=== PATIENT | male | born 1970 | race Caucasian/White ===

== ENCOUNTER → 2016-08-10 | Day surgery (SDC) | payer MEDICAID ==
[2016-08-06 07:34] VITALS: BMI 19.5
[~2016-08-10] MED LIST: BUPIVACAINE 0.25% 30 ML VIAL INF ONE; CEFAZOLIN 1 GM VIAL IR ONE; DEXAMETHASONE 4 MG/ML VIAL IV PRN; DIAZEPAM 5 MG TAB PO PRN; FENTANYL 100 MCG/2 ML VIAL IV PRN; FENTANYL 100 MCG/2 ML VIAL ONE; HEPARIN 5000 UNITS/ML VIAL INSTILL ONE; HYDROCODONE 5 MG/ACETAMIN 325 MG TAB PO PRN; IOHEXOL (Omnipaque-300) 30 ml vial INSTILL ONE; KETOROLAC TROMETH 30 MG/ML VIAL IV PRN; LABETALOL 20 MG/4 ML SYRINGE IV PRN; LIDOCAINE 1% 30 ML VIAL (PRESERVATIVE FREE) INF ONE; LR 1,000 ML IV ONE; LR 1,000 ML IV SCH; MIDAZOLAM 2 MG/2 ML VIAL ONE; NS 1,000 ML IV SCH; NS 250 ML IV SCH; ONDANSETRON HCL 4 MG/2 ML VIAL IV PRN; PROPOFOL 200 MG/20 ML VIAL IV ONE; SCOPOLAMINE TRANSDERMAL PATCH TOP PRN; hydrALAZINE 20 MG/ML VIAL IV PRN
--- NOTE | 2016-08-10 07:02 | SC.ANESEVA ---
Anesthesia Eval & Plan ([facility]) - Providers Stated Procedure: port placement Surgeon:: Boone Powers - Medications/Allergies Allergies: Allergies No Known Allergies Allergy (Verified 06/02/16 03:26) Home Medications: Home Medication List Alprazolam [Xanax] 0.25 mg PO PRN 08/06/16 [History] Cyclobenzaprine HCl [Flexeril] 10 mg PO PRN 08/06/16 [History] Gabapentin [Neurontin] 300 mg PO TID 08/06/16 [History] Hydroxyzine HCl 50 mg PO TID 08/06/16 [History] Isosorbide Mononitrate 20 mg PO DAILY 08/06/16 [History] Sertraline HCl [Zoloft] 50 mg PO DAILY 08/06/16 [History] Tramadol HCl [Ultram] 50 mg PO PRN 08/06/16 [History] Trazodone HCl 50 mg PO QHS 08/06/16 [History] Current Medication List: Reviewed - Focused Physical Exam Mallampati: Class II Thyromental Distance: Greater than 3 Neck: Full Range of Motion Dental: Removable Dental Work Cardiovascular/Chest: Normal Respiratory: Lungs clear Other: Diagnoses UNSPECIFIED DISORDER OF CIRCULATORY SYSTEM (08/10/16) Allergies Allergy/AdvReac Type Severity Reaction Status Date / Time No Known Allergies Allergy Verified 06/02/16 03:26 Home Medications Medication Instructions Recorded Last Taken Type Oxycodone HCl [Roxicodone] 5 mg PO Q4 PRN #15 tablet 06/02/16 Unknown Rx Alprazolam [Xanax] 0.25 mg PO PRN 08/06/16 Unknown History Cyclobenzaprine HCl [Flexeril] 10 mg PO PRN 08/06/16 Unknown History Gabapentin [Neurontin] 300 mg PO TID 08/06/16 Unknown History Hydroxyzine HCl 50 mg PO TID 08/06/16 Unknown History Isosorbide Mononitrate 20 mg PO DAILY 08/06/16 Unknown History Sertraline HCl [Zoloft] 50 mg PO DAILY 08/06/16 Unknown History Tramadol HCl [Ultram] 50 mg PO PRN 08/06/16 Unknown History Trazodone HCl 50 mg PO QHS 08/06/16 Unknown History Height and Weight Patient's height 5 ft 8 in Patient's weight 64.41 kg Weight (Calculated Kilograms) 58.513 BMI 21.6 - Anesthetic Plan Anesthesia Type: MAC ASA Class: 3 - Focused Review of Systems Cardiac History: Yes: Hx Hypertension, Hx Heart Attack, Hx Cardiac Disorders HEENT: No: Other HEENT Problems Gastrointestinal: No: Hx Gastrointestinal Disorders Neurological/Musculoskeletal: Yes: Hx Seizures (EPILEPSY), Hx Neurological Disorders Smoking Status: Heavy tobacco smoker (5 or more cigarettes/day or daily pipe/ cigar) Last used tobacco: 1 MONTH AGO Last used Alcohol: RARE Surgical History: Yes: T&A
[2016-08-10 07:29] VITALS: TEMP 97.6
--- NOTE | 2016-08-10 08:33 | HIMOPRPT ---
POSTOPERATIVE DIAGNOSIS: DATE OF PROCEDURE: 08/10/16 PREOPERATIVE DIAGNOSIS: Poor venous access. POSTOPERATIVE DIAGNOSIS: Poor venous access. PROCEDURE: Placement of Left internal jugular catheter with subcutaneous port using ultrasound guidance and fluoroscopy. SURGEON: Boone Powers MD. ANESTHESIA: MAC. COMPLICATIONS: None. PROCEDURE NOTE: The patient was placed supine on the operative table. Patient was prepped and draped in usual fashion. Using ultrasound guidance, we were able to identify the left internal jugular vein. We anesthetized the skin and subcutaneous tissue. We placed a large-bore needle directly into the vein under ultrasound guidance. We then passed a guidewire through the needle and we removed the needle. Using the C-arm fluoroscopy, we were able to identify the trajectory of the guidewire. With this in good position, we went ahead and infiltrated the subcutaneous tissue in the left subclavicular region. An incision was made, and we created a subcutaneous pocket to accommodate the port. We then anesthetized the skin subcutaneous tissue between the puncture site and the port site. We then made a small incision at the puncture site with a 15 blade, and then placed a tunneler between these 2, pulling the catheter through. Under fluoroscopic visualization, we were able to see and placed a dilator sheath over the guidewire without any difficulties. We removed the guidewire and the dilator leaving the sheath in place. We then passed the catheter through the sheath. We peeled the sheath away leaving the catheter in place. We then clamped the other end of the catheter and then filled the catheter with contrast. This allowed for easy visualization. We then placed traction on this until the tip was at the superior vena cava. We went ahead and then injected contrast through this and were able to visualize the tip was indeed in the superior vena cava under fluoroscopic visualization. We then cut the catheter, assembled it to the port, placed the port in the subcutaneous pocket. We sutured this to the fascia using Vicryl sutures. We irrigated this, tested the port, we easily aspirated this and then flushed with heparinized saline, repeating this process several times. We checked the position of the catheter and port using fluoroscopy, they were in excellent position. We then irrigated the wounds, closed them with Vicryl sutures and Monocryl. Placed Dermabond over the skin edges. The patient tolerated this well. Sponge and needle counts were correct.
--- NOTE | 2016-08-10 08:35 | HIMOPRPT ---
PROCEDURE: DATE OF PROCEDURE: 08/10/16 PREOPERATIVE DIAGNOSIS: Poor venous access, and port placement. POSTOPERATIVE DIAGNOSIS: Poor venous access, and port placement. PROCEDURE: Contrast study through catheter port. SURGEON: Boone Powers MD. ANESTHESIA: General. COMPLICATIONS: None. PROCEDURE IN DETAIL: During placement of left internal jugular vein catheter, Isovue was injected through the catheter. On usage of fluoroscopy, the catheter tip was well visualized. This was noted to be in the superior vena cava. No complicating features of placement noted. IMPRESSION: Intravenous catheter with tip in superior vena cava.
--- NOTE | 2016-08-10 08:38 | PCM.DCS92 ---
Discharge Outpatient Note Additional Instructions: Instructions: 08/10/16 * Anesthetics and other medications stay in your system 24 hours, so you may feel drowsy. These effects will wear off. * DO NOT drive a car, operate machinery or power tools, or drink alcoholic beverages for 24 hours following surgery. * DO NOT make any important decisions, such as signing legal documents for 24hours following surgery. * Please take pain medications as directed. * Apply ice packs to the procedure site for 20 minutes on, 1 hour off and repeat as needed. * Return to your regular diet as tolerated. * Follow up with Oncology as sched. Call Physician office to report any of the following: * Elevated temperature * Increased drainage or drainage has foul odor * Increased pain not controlled by regular use of pain medication
[2016-08-10 09:03] VITALS: BP 129/79; PULSE 93
== END ==
LOC: CPSC 06:40
PROVIDERS: ATTEND Surgery
PROC: 02HV33Z Insertion of Infusion Device into Superior Vena Cava, Percutaneous Approach (ICD-10-PCS; principal; 2016-08-10 07:15)
DX: C34.90 Malignant neoplasm of unspecified part of unspecified bronchus or lung (principal); I99.9 Unspecified disorder of circulatory system; I10 Essential (primary) hypertension; I25.2 Old myocardial infarction; G40.909 Epilepsy, unspecified, not intractable, without status epilepticus; F17.210 Nicotine dependence, cigarettes, uncomplicated; Z79.899 Other long term (current) drug therapy
CPT/HCPCS: 36561; 76937; 77001; C1788; J0690; J1644; J2001; J2250; J2704; J3010; J3490; Q9967